=== PATIENT | female | born 1985 | race Caucasian/White ===

== ENCOUNTER 2024-05-15 14:09 | Outpatient (CLI) | payer OTHER | END 2024-05-15 14:10 | disposition home or self-care (01) | LOC: CSHMRI 14:09 | PROVIDERS: ATTEND Neurological Surgery | DX: M47.22 Other spondylosis with radiculopathy, cervical region (principal); G37.9 Demyelinating disease of central nervous system, unspecified; M48.02 Spinal stenosis, cervical region | CPT/HCPCS: 70553; 72141; 76376 ==